=== PATIENT | male | born 1975 | race African-American/Black ===

== ENCOUNTER 2025-01-06 13:10 | Emergency (ER) | payer OTHER ==
[2025-01-06 13:32] VITALS: BP 118/86; PULSE 87; RESP 18; TEMP 98; BMI 22.0
[2025-01-06] MEDS ORDERED: IBUPROFEN 400 MG TABLET (FP) PO ONE (14:52)
[2025-01-06] MEDS: IBUPROFEN 400 MG TABLET (FP) PO ONE (14:54)
== END 2025-01-06 15:52 | disposition home or self-care (01) ==
LOC: FER 13:10
DX: S93.401A Sprain of unspecified ligament of right ankle, initial encounter (principal); W22.8XXA Striking against or struck by other objects, initial encounter
CPT/HCPCS: 73630-TC-RT-FY; 99283-25